=== PATIENT | female | born 1950 | race Caucasian/White ===

== ENCOUNTER 2018-01-10 13:08 | Emergency (ER) | payer MEDICARE, OTHER ==
[~2018-01-10] VITALS: Ht 157.5 cm; Wt 65.0 kg
[2018-01-10] MEDS ORDERED: HYDR12.57 PO (13:21)
[2018-01-10] MEDS ORDERED: LISI-519 PO (13:21)
[2018-01-10 13:22] VITALS: BP 95/51; PULSE 71; RESP 16; TEMP 98.6; O2SAT 97
[2018-01-10] MEDS ORDERED: SODIUM CHLOR 0.9% 1000 ML INJ 1,000 ML IV ONE (13:45)
[2018-01-10 14:04] VITALS: BP_SYST 110; BP_SYST 90; BP_SYST 91; BP_DIAS 50; BP_DIAS 52; BP_DIAS 55; RESP 16; RESP 17; RESP 18
[2018-01-10 14:41] LABS: AUTOMATED NEUTROPHIL # 8.2 TH/MM3 (1.8-7.7); BASOPHIL # 0.1 TH/MM3 (0-0.2); BASOPHIL % 0.5 % (0.0-2.0); EOSINOPHIL # 0.2 TH/MM3 (0-0.4); EOSINOPHIL % 2.4 % (0.0-4.0); HEMATOCRIT 34.3 % (35.0-46.0); HEMOGLOBIN 11.3 GM/DL (11.6-15.3); LYMPH % 11.4 % (9.0-44.0); LYMPHOCYTE # 1.2 TH/MM3 (1.0-4.8); MEAN CELL VOLUME 90.6 FL (80.0-100.0); MEAN CORPUSCULAR HEMOGLOBIN 29.9 PG (27.0-34.0); MEAN PLATELET VOLUME 7.5 FL (7.0-11.0); MONO % 4.9 % (0.0-8.0); MONOCYTE # 0.5 TH/MM3 (0-0.9); NEUT % 80.8 % (16.0-70.0); PLATELET COUNT 204 TH/MM3 (150-450); RED BLOOD COUNT 3.78 MIL/MM3 (4.00-5.30); WHITE BLOOD COUNT 10.1 TH/MM3 (4.0-11.0)
[2018-01-10 15:11] LABS: ALKALINE PHOSPHATASE 84 U/L (45-117); ALT (GPT) 19 U/L (10-53); AST (GOT) 14 U/L (15-37); BICARBONATE 25.3 MEQ/L (21.0-32.0); BLOOD UREA NITROGEN 17 MG/DL (7-18); CALCIUM 7.1 MG/DL (8.5-10.1); CALCIUM-PROTEIN CORRECTED 7.9 MG/DL (8.5-10.1); CHLORIDE 104 MEQ/L (98-107); GLOMERULAR FILTRATION RATE 99 ML/MIN (>89); GLUCOSE,RANDOM 100 MG/DL (74-106); SODIUM (NA) 138 MEQ/L (136-145); TOTAL BILIRUBIN ADULT 0.3 MG/DL (0.2-1.0); TOTAL PROTEIN 5.6 GM/DL (6.4-8.2); TROPONIN I LESS THAN 0.02 NG/ML (0.02-0.05)
--- NOTE | 2018-01-10 16:01 | PD ---
HPI Chief Complaint: Syncope/Near-Syncope Time Seen by Provider: 13:25 Travel History International Travel<30 days: No Contact w/Intl Traveler<30days: No Traveled to known affect area: No History of Present Illness HPI Patient is a 67-year-old female who comes in complaining of a near syncopal episode this afternoon. She says she had a banana for breakfast and then she went to give blood. She says she was feeling fine, but when she went to get something to eat while she was standing she felt very dizzy and almost passed out. She denies completely passing out. She does describe some nausea and some tingling in her hands when this is happening. She denies hitting her head. When EMS arrived, her blood pressure was low, with a systolic pressure in the 90s. She was given some fluids. She reports feeling better on arrival. She denies ever having any chest pain or shortness of breath. She says she was feeling in her normal state of health prior to going to give blood. Severity is mild to moderate. PFSH Past Medical History High Cholesterol: Yes Hypertension: Yes Tetanus Vaccination: Unknown Influenza Vaccination: No Past Surgical History Other Surgery: Yes (OOPHERECTOMY) Social History Alcohol Use: No Tobacco Use: No Substance Use: No Allergies-Medications (Allergen,Severity, Reaction): Coded Allergies: No Known Allergies (Unverified , 01/10/18) Reported Meds & Prescriptions Reported Meds & Active Scripts Active Reported Hydrochlorothiazide 12.5 Mg Cap 12.5 Mg PO DAILY Lisinopril 5 Mg Tab 5 Mg PO DAILY Review of Systems Except as stated in HPI: all other systems reviewed are Neg General / Constitutional: No: Fever, Chills HENT: Positive: Lightheadedness, No: Headaches Cardiovascular: No: Chest Pain or Discomfort, Palpitations Respiratory: No: Shortness of Breath Gastrointestinal: No: Nausea, Vomiting Musculoskeletal: No: Myalgias, Edema Skin: No Rash, No Change in Pigmentation Neurologic: No: Weakness, Dizziness Physical Exam Narrative GENERAL: Awake and alert, no acute distress. SKIN: Focused skin assessment warm/dry. No wounds or signs of infection. HEAD: Atraumatic. Normocephalic. EYES: Pupils equal and round. No scleral icterus. Extraocular movements intact. ENT: Mucous membranes pink and moist. NECK: Trachea midline. No JVD. CARDIOVASCULAR: Regular rate and rhythm. No murmur appreciated. RESPIRATORY: No accessory muscle use. Clear to auscultation. Breath sounds equal bilaterally. GASTROINTESTINAL: Abdomen soft, non-tender, nondistended. MUSCULOSKELETAL: No obvious deformities. No clubbing. No cyanosis. No edema. NEUROLOGICAL: Awake and alert. No obvious cranial nerve deficits. Motor grossly within normal limits. Normal speech. PSYCHIATRIC: Appropriate mood and affect; insight and judgment normal. Data Data Last Documented VS Vital Signs Date Time Temp Pulse Resp B/P (MAP) Pulse Ox O2 Delivery O2 Flow Rate FiO2 01/10/18 13:22 98.6 71 16 95/51 (66) 97 Orders Orders Iv Access Insert/Monitor (01/10/18 13:44) Complete Blood Count With Diff (01/10/18 13:44) Comprehensive Metabolic Panel (01/10/18 13:44) Troponin I (01/10/18 13:44) Electrocardiogram (01/10/18 ) Sodium Chlor 0.9% 1000 Ml Inj (Ns 1000 M (01/10/18 13:45) Labs Laboratory Tests Test 01/10/18 14:00 White Blood Count 10.1 TH/MM3 Red Blood Count 3.78 MIL/MM3 Hemoglobin 11.3 GM/DL Hematocrit 34.3 % Mean Corpuscular Volume 90.6 FL Mean Corpuscular Hemoglobin 29.9 PG Mean Corpuscular Hemoglobin Concent 33.0 % Red Cell Distribution Width 13.0 % Platelet Count 204 TH/MM3 Mean Platelet Volume 7.5 FL Neutrophils (%) (Auto) 80.8 % Lymphocytes (%) (Auto) 11.4 % Monocytes (%) (Auto) 4.9 % Eosinophils (%) (Auto) 2.4 % Basophils (%) (Auto) 0.5 % Neutrophils # (Auto) 8.2 TH/MM3 Lymphocytes # (Auto) 1.2 TH/MM3 Monocytes # (Auto) 0.5 TH/MM3 Eosinophils # (Auto) 0.2 TH/MM3 Basophils # (Auto) 0.1 TH/MM3 CBC Comment DIFF FINAL Differential Comment Blood Urea Nitrogen 17 MG/DL Creatinine 0.60 MG/DL Random Glucose 100 MG/DL Total Protein 5.6 GM/DL Albumin 3.0 GM/DL Calcium Level 7.1 MG/DL Alkaline Phosphatase 84 U/L Aspartate Amino Transf (AST/SGOT) 14 U/L Alanine Aminotransferase (ALT/SGPT) 19 U/L Total Bilirubin 0.3 MG/DL Sodium Level 138 MEQ/L Potassium Level 3.7 MEQ/L Chloride Level 104 MEQ/L Carbon Dioxide Level 25.3 MEQ/L Anion Gap 9 MEQ/L Estimat Glomerular Filtration Rate 99 ML/MIN Protein Corrected Calcium 7.9 MG/DL Troponin I LESS THAN 0.02 NG/ML MDM Medical Decision Making Medical Screen Exam Complete: Yes Emergency Medical Condition: Yes Interpretation(s) ECG shows normal sinus rhythm at a rate of 73, no ST elevation or depression, normal intervals Differential Diagnosis Anemia versus orthostatic hypotension versus dehydration Narrative Course Patient is a 67-year-old female who comes in complaining of near-syncope after giving blood. Exam shows no acute abnormalities. Orthostatic vital signs are negative fluids and something to eat. Labs check show no acute abnormalities. Patient is feeling better. She is walking well with no issues. She is advised to eat a proper meal. Advised to follow-up with her doctor. Advised return to the ED as needed for any worsening symptoms. Diagnosis Primary Impression: Vasovagal near syncope Patient Instructions: General Instructions, Near Syncope (ED) Additional Instructions: Drink plenty of fluids, and eat a proper meal. Follow-up with your doctor. Return to the ED as needed for any worsening symptoms. Disposition: 01 DISCHARGE HOME Condition: Stable Oralia Henderson MD January 10, 2018 16:01
--- NOTE | 2018-01-11 15:24 | EKG ---
Date Performed: 01/10/2018 Time Performed: 14:37:14 PTAGE: 67 years EKG: Sinus rhythm BORDERLINE LEFT AXIS DEVIATION BORDERLINE ECG NO PREVIOUS TRACING DOCTOR: Ernie Thomas Interpretating Date/Time 01/11/2018 15:23:04
== END 2018-01-10 16:13 | disposition home or self-care (01) ==
LOC: NEPD 13:08
DX: R55 Syncope and collapse (principal); I10 Essential (primary) hypertension
CPT/HCPCS: 80053; 84484; 85025; 93005; 96360; 99284; J7030